=== PATIENT | female | born 1980 | race Caucasian/White ===

== ENCOUNTER 2022-01-16 18:36 | Emergency (ER) | payer SELFPAY ==
--- NOTE | ~2022-01-16 | CT_ITS ---
EXAMINATION: CT facial & cervical spine wo DATE: 01/16/2022 19:28 INDICATION: head trauma TECHNIQUE: Computed tomography (CT) of the maxillofacial region and cervical spine was performed with out intravenous contrast. Automated exposure control and iterative reconstruction technique were empl oyed. The dose-length product was 120.58 mGy-cm. COMPARISON: None FINDINGS: CERVICAL: Vertebral Body Alignment: Intact. Craniocervical and atlantoaxial alignment: Moderate degenerative change. Alignment intact. Osseous structures/fracture: No evidence of a lytic or blastic process in the visualized spine. No e vidence of acute fracture. Cervical soft tissues: The paraspinal soft tissues planes are maintained. Degenerative changes: No significant degenerative changes. FACE: Soft Tissues: No significant superficial soft tissue swelling. Facial bones: No acute fracture. No lytic or blastic process. Eyes: The globes are intact. The soft tissue planes of the orbits are maintained. Paranasal Sinuses: The visualized aerated spaces are clear. Foreign Bodies: No radiopaque foreign bodies. Other Findings: Periodontal disease. Apical pleural scarring and blebs. IMPRESSION: No acute fracture or traumatic malalignment in the cervical spine. No acute facial bone fracture. Reviewed, dictated and finalized at location K. IMPRESSION: No acute fracture or traumatic malalignment in the cervical spine. No acute fac ial bone fracture.
--- NOTE | ~2022-01-16 | CT_ITS ---
EXAMINATION: CT brain wo con DATE: 01/16/2022 19:28 INDICATION: head trauma . TECHNIQUE: Computed tomography (CT) of the head was performed without intravenous contrast. The mA wa s adjusted according to patient size. Iterative reconstruction technique was employed. The dose-lengt h product was 605.33 mGy-cm. COMPARISON: None FINDINGS: No acute intracranial hemorrhage or extra-axial fluid collection. No hydrocephalus, mass, or herniation. No acute ischemic infarct. Unremarkable dural venous sinus attenuation. No acute osseous abnormality. The aerated spaces are clear. IMPRESSION: No acute intracranial process. Reviewed, dictated and finalized at location K.
[2022-01-16 18:44] VITALS: BP 125/77; PULSE 126; RESP 16; TEMP 36.8; O2SAT 99
--- NOTE | 2022-01-16 18:55 | ED.PSYCH ---
HPI - Psych General Chief Complaint: Psychiatric Symptoms <Tereza Vergara MD - Last Filed: 01/17/22 06:15> Stated Complaint: delusional/paranoid <Tereza Vergara MD - Last Filed: 01/17/22 06:15> Time Seen by Provider: 01/16/22 18:49 <Tereza Vergara MD - Last Filed: 01/17/22 06:15> Source: patient and EMS <Tereza Vergara MD - Last Filed: 01/17/22 06:15> Mode of arrival: EMS <Tereza Vergara MD - Last Filed: 01/17/22 06:15> Limitations: clinical condition <Tereza Vergara MD - Last Filed: 01/17/22 06:15> History of Present Illness HPI Narrative: Patient is a 41-year-old female presenting to the emergency department via EMS for evaluation of hallucinations, paranoid behavior, head trauma. Patient reports she has been hallucinating, hearing voices in her head over the past 48 hours. Patient has been beating her head against a wall an effort to get the voices out of her head. Patient has significant facial bruising. She reports mild headache and neck pain. Patient denies focal weakness or numbness. She denies homicidal or suicidal ideation but does endorse significant depression. Patient denies suicide attempt. Patient reports methamphetamine use 2 days ago, denies alcohol or other drug abuse. She currently denies any chest pain, abdominal pain. <Tereza Vergara MD - Last Filed: 01/17/22 06:15> Related Data Allergies/Adverse Reactions: Allergies Allergy/AdvReac Type Severity Reaction Status Date / Time No Known Allergies Allergy Verified 01/17/22 00:01 <Tereza Vergara MD - Last Filed: 01/17/22 06:15> Review of Systems Review of Systems: CONSTITUTIONAL: Denies fever CARDIOVASCULAR: Denies chest pain RESPIRATORY: Denies cough or dyspnea. GASTROINTESTINAL: Denies abdominal pain SKIN: Denies rash, reports bruising MUSCULOSKELETAL: Denies back pain NEUROLOGIC: Reports headache <Tereza Veragra MD - Last Filed: 01/17/22 06:15> PMFSH Social History Social History: Social History Substance use type: amphetamines and methamphetamine <Tereza Vergara MD - Last Filed: 01/17/22 06:15> Exam Narrative: GENERAL: Awake, alert, conversant HEAD: Normocephalic, healing ecchymosis, inferior orbits bilaterally EYES: 2+ PERRLA and EOMI. ENT: Nares clear, no rhinorrhea or epistaxis. Mucous membranes moist. NECK: Supple. CHEST: No respiratory distress, breathing even and non labored HEART: Regular rate, sinus rhythm ABDOMEN:Non distended, non tender EXTREMITIES: Normal range of motion. No edema. SKIN: Warm, dry, no rash. NEURO:No focal deficits. Alert and oriented x3. Patient is ambulatory with a narrow base, steady gait, no ataxia. Psych: Patient is acutely delusional, paranoid, redirected during interview, denies homicidal or suicidal ideation <Tereza Vergara MD - Last Filed: 01/17/22 06:15> Course Course Emergency Course: 01/17 21:02 Patient was signed out to me by Dr. Potts. Patient is medically cleared at this time. <Caleb Curtis MD - Last Filed: 01/17/22 21:03> Reevaluation(s) Reevaluation #1: No acute events throughout the day. Exam unchanged and patient noted ambulating without assistance. Patient signed out to oncoming physician, Dr. Curtis, pending placement. <Ramu Potts MD - Last Filed: 01/17/22 19:02> Date: 01/17/22 <Ramu Potts MD - Last Filed: 01/17/22 19:02> Time: 19:00 <Ramu Potts MD - Last Filed: 01/17/22 19:02> Reevaluation #2: Currently patient is awake, alert and oriented x4, asymptomatic, patient is denying any suicidal or homicidal ideation she knows that she needs help and she is planning to follow-up with her psychiatrist and with the crisis line instruction. Patient still me that she came to the hospital on her own, requesting help, and she have the right to leave right now without holding her against her will. Patient psychosis high likely secondary to the
[2022-01-16 19:40] LABS: SARS-CoV-2 RNA PCR Negative
--- NOTE | 2022-01-16 20:19 | PC.NURSE ---
2 nurses and 2 techs have already tried for an IV and blood but we are unable to obtain blood at this time. Patient refuses to use the give a urine sample at this time.
[2022-01-16 20:35] LABS: Basophils Absolute Auto 0.1 K/mm3 (0.0-0.1); Basophils Percent Auto 0.5 % (0.2-1.2); Eosinophils Absolute Auto 0.1 K/mm3 (0-0.3); Eosinophils Percent Auto 0.6 % (0-4.4); Hematocrit 44.6 % (37.0-47.0); Hemoglobin 14.8 g/dL (12.0-15.0); Immature Granulocyte Absolute 0.05 K/mm3 (0.00-0.031); Immature Granulocyte Percent A 0.5 % (0-0.5); Immature Platelet Fraction Pct 4.5 % (0.9-11.2); Lymphocytes Percent Auto 25.3 % (18.3-44.2); Mean Corpuscular HGB Conc 33.2 g/dl (32-36); Mean Corpuscular Hemoglobin 31.4 pg (26-34); Mean Corpuscular Volume 94.5 fl (80-100); Mean Platelet Volume 10.1 fl (7.4-10.4); Monocytes Absolute Auto 0.9 K/mm3 (0.1-0.6); Monocytes Percent Auto 7.7 % (2.6-8.5); Neutrophils Absolute Auto 7.2 K/mm3 (1.3-6.7); Neutrophils Percent Auto 65.4 % (45.5-73.1); Platelet Count Result 332 k/mm3 (150-375); Red Blood Count 4.72 M/mm3 (4.2-5.4); Red Cell Distribution Width 14.2 % (11.5-14.5); White Blood Count 11.1 K/mm3 (4.5-10.0)
[2022-01-16 20:46] LABS: Platelet Estimate Adequate (Adequate)
[2022-01-16 20:52] LABS: Alanine Aminotransferase 47 U/L (6-35); Albumin Level 5.2 g/dL (3.5-5.1); Alkaline Phosphatase 81 U/L (38-126); Anion Gap 15 mmol/L (8-16); Aspartate Amino Transferase 30 U/L (14-36); Bilirubin,Total 0.7 mg/dL (0.2-1.3); Blood Urea Nitrogen 9 mg/dL (7-17); Calcium 9.6 mg/dL (8.4-10.2); Carbon Dioxide 21 mmol/L (22-30); Chloride 103 mmol/L (98-107); Estimated CRCL calculation 80 ml/min; Estimated Glomerular Filt Rate > 60; Glucose 97 mg/dL (65-110); Potassium 3.7 mmol/L (3.4-5.0); Sodium 139 mmol/L (137-145)
[2022-01-16 20:56] LABS: Ethanol < 10 mg/dL (<10)
[2022-01-16 21:22] LABS: Thyroid Stimulating Hormone 0.813 uIU/mL (0.465-4.680)
[2022-01-16 21:42] LABS: Appearance Urine Slightly Cloudy (Clear); Bilirubin Urine Negative (Negative); Blood Urine Negative (Negative); Color Urine Yellow (Yellow); Glucose Urine UA Negative (Negative); Ketones Urine Trace mg/dL (Negative); Leukocyte Esterase Ur Negative LEU/UL (Negative); Nitrate Urine Positive (Negative); Protein Urine 2+ mg/dL (Negative); Specific Grav Ur >= 1.030 (1.001-1.035); pH Urine 5.5 (5.0-9.0)
[2022-01-16 21:51] LABS: Amorphous Sediment Urine Few; Bacteria Urine Trace /hpf; Hyaline Casts Urine 20-29 /lpf; Mucus Urine Heavy /lpf; Squamous Epithelial Cell Urine Many /hpf (Few); WBC Urine 31-50 /hpf
[2022-01-16 21:53] LABS: Add Urine Microscopic? YES
[2022-01-16 21:58] LABS: Barbiturate Screen Urine Negative (Negative); Benzodiazepines Screen Urine Negative (Negative)
[2022-01-16 21:59] LABS: Cannabinoid Screen Urine Positive (Negative); Cocaine Screen Urine Negative (Negative); Methadone Screen Urine Negative (Negative); Opiate Screen Urine Negative (Negative); Phencyclidine Screen Urine Negative (Negative)
[2022-01-16 22:27] LABS: Amphetamine Screen Urine Positive (Negative)
--- NOTE | 2022-01-17 00:16 | PC.NURSE ---
Patient belongings locked up between rooms 4-5 Patient dog went home with the patient's brother. dog cage left outside the patient room. ED Charge nurse aware.
[2022-01-17] MEDS: CEPHALEXIN 500 MG CAPSULE PO ×4 (00:23→22:30)
[2022-01-17] MEDS: Please add drug allergy info to patient profile. 1 EACH XX (00:26)
[2022-01-17 03:27] VITALS: BP 138/86; PULSE 87; RESP 14; TEMP 36.6; O2SAT 100
[2022-01-17 06:52] VITALS: BP 93/66; PULSE 78; RESP 18; TEMP 36.1; O2SAT 100
--- NOTE | 2022-01-17 06:58 | PC.NURSE ---
[facility] called and asked questions about pt.She states she is awaiting paperwork from crisis. Also wanted to speak with pt on the phone.
--- NOTE | 2022-01-17 07:03 | PC.NURSE ---
[facility] called again and stated that pt did very well in her assessment. She states she is awaiting a Dr. and states that she is still awaiting paperwork from crisis. She states she is going to call crisis to followup.
--- NOTE | 2022-01-17 07:40 | PC.NURSE ---
pt resting comfortably w/ equal chest rise and fall. sitter at bedside. no request at this time.
--- NOTE | 2022-01-17 08:29 | PC.NURSE ---
spoke with Kadie at [facility] and states she received all the paperwork from [facility]. She states she will speak with the doctor and call back.
--- NOTE | 2022-01-17 08:32 | PC.NURSE ---
ordered pt breakfast tray.
--- NOTE | 2022-01-17 08:46 | PC.NURSE ---
Pt accepted at [facility], but will be waiting on discharges this morning before being given accepting md name and room number.
[2022-01-17 08:57] VITALS: BP 100/65; PULSE 76; RESP 14; TEMP 36.5; O2SAT 99
--- NOTE | 2022-01-17 12:44 | PC.NURSE ---
called [facility] for an update on bed placement. They state pt is still on the waiting list.
--- NOTE | 2022-01-17 14:03 | PC.NURSE ---
Kadie from [facility] called and states they do not have any discharges today. pt is still accepted and the first on the waitlist.
--- NOTE | 2022-01-17 14:18 | PC.NURSE ---
[facility] notified that patient was accepted to [facility] however will not have a bed today, may be tomorrow.
--- NOTE | 2022-01-17 14:43 | PC.NURSE ---
Marcelle from [facility] called. faxing chart to [facility] per her request.
[2022-01-17 15:36] VITALS: BP 110/66; PULSE 92; RESP 17; O2SAT 100
--- NOTE | 2022-01-17 17:13 | PC.NURSE ---
Marcelle from Crisis called and states [facility] denied pt.
--- NOTE | 2022-01-17 19:50 | PC.NURSE ---
Pt sleeping on bed in room. No distress noted. Sitter present at bedside.
--- NOTE | 2022-01-17 21:56 | PC.NURSE ---
Marcelle with [facility] called and provided fax number to [facility], and confirmed that patient has been accepted to [facility], but there are no beds available at this time, expecting beds tomorrow. Also, [facility] wants patient reassessed before they will consider looking at her case. They feel that the symptoms may be contributed to drugs (meth) from 2 days ago, and that with time, and drugs being out of her system, symptoms may be better/not there, so reassessment would be required. [facility] said that if they need to reassess, they will come in tomorrow (01/18) to do that.
[2022-01-18] MEDS: CEPHALEXIN 500 MG CAPSULE PO ×2 (06:55→14:08)
--- NOTE | 2022-01-18 12:07 | PC.NURSE ---
patient requesting to be discharged. patient informed by this RN that she is to speak with social scientist and a decision will be made after. patient remains calm and cooperative at this time.
--- NOTE | 2022-01-18 12:52 | PC.NURSE ---
patient informed she has been accepted to [facility] for inpatient treatment, but now is refusing to go and states she would like to be discharged. will inform MD and hospice social worker.
[2022-01-18 12:55] VITALS: BP 93/60; PULSE 103; RESP 20; TEMP 36.2; O2SAT 100
--- NOTE | 2022-01-18 13:19 | PC.NURSE ---
attempted to call report at 1315 to [facility]. no answer. will attempt to call back.
--- NOTE | 2022-01-18 14:08 | PC.NURSE ---
MD spoke with patient and was okay with re-evaluation. patient spoke with social studies department chair and is okay to be discharged
--- NOTE | 2022-01-18 14:15 | PC.NURSE ---
[facility] declined transfer to [facility]
== END 2022-01-18 14:28 ==
PROVIDERS: Emergency Medicine; Emergency Provider Emergency Medicine
DX: R44.0 Auditory hallucinations (principal); N39.0 Urinary tract infection, site not specified; S00.83XA Contusion of other part of head, initial encounter; F15.90 Other stimulant use, unspecified, uncomplicated; Z20.822 Contact with and (suspected) exposure to COVID-19; W22.09XA Striking against other stationary object, initial encounter
CPT/HCPCS: 36415; 70450; 70486; 72125; 80053; 80307; 81001; 81025; 84443; 85025; 85055; 87077; 87086; 87186; 99285; A9270; C9803; U0003; U0005

== ENCOUNTER 2023-08-27 15:38 | Inpatient (IN) | payer BC, SELFPAY ==
[2023-08-27] VITALS (47 sets, daily range): BP systolic 121–152; BP diastolic 65–129; PULSE 45–105; RESP 16; TEMP 37.1; O2SAT 97–100; BMI 20.5
[2023-08-27] MEDS: OXYTOCIN 30 UNITS/NS 500 ML 30 UNITS/500 ML BAG 125 UNITS IV CONT (16:31)
--- NOTE | 2023-08-27 16:31 | LDADM ---
This patient, Neelam Ly, was admitted to Labor/Delivery/Recovery 105 on 08/27/23 at 15:38. Pain management was discussed with patient. Patient/family oriented to hospital policies and general routines including ID bracelet, bed and alarms, visiting hours, pain management, procedures, bathroom and other care routines, personal items, smoking policy, room service/diet and guest tray routines, security routines, and visiting hours. Patient/Family are encouraged to report perceived risks to care and to ask questions if they do not understand what they are told or what they should do. See [facility] for further documentation.
[2023-08-27 16:36] LABS: Basophils Absolute Auto 0.1 K/mm3 (0.0-0.1); Basophils Percent Auto 0.3 % (0.2-1.2); Eosinophils Percent Auto 0.1 % (0-4.4); Hematocrit 33.8 % (37.0-47.0); Hemoglobin 11.2 g/dL (12.0-15.0); Immature Granulocyte Percent A 0.6 % (0-0.5); Lymphocytes Absolute Auto 1.78 K/mm3 (0.9-3.2); Lymphocytes Percent Auto 11.4 % (18.3-44.2); Mean Corpuscular HGB Conc 33.1 g/dl (32-36); Mean Corpuscular Hemoglobin 29.9 pg (26-34); Mean Corpuscular Volume 90.1 fl (80-100); Mean Platelet Volume 10.9 fl (7.4-10.4); Monocytes Percent Auto 6.1 % (2.6-8.5); Neutrophils Absolute Auto 12.8 K/mm3 (1.3-6.7); Neutrophils Percent Auto 81.5 % (45.5-73.1); Platelet Count Result 306 k/mm3 (150-375); Red Blood Count 3.75 M/mm3 (4.2-5.4); Red Cell Distribution Width 12.6 % (11.5-14.5); White Blood Count 15.7 K/mm3 (4.5-10.0)
[2023-08-27 16:46] LABS: Alanine Aminotransferase 16 U/L (6-35); Albumin Level 3.3 g/dL (3.5-5.1); Alkaline Phosphatase 256 U/L (38-126); Anion Gap -1 mmol/L (4-12); Aspartate Amino Transferase 34 U/L (14-36); Bilirubin,Total 0.6 mg/dL (0.2-1.3); Blood Urea Nitrogen 6 mg/dL (7-17); Calcium 8.9 mg/dL (8.4-10.2); Carbon Dioxide 26 mmol/L (22-30); Chloride 106 mmol/L (98-107); Estimated Glomerular Filt Rate > 60; Glucose 88 mg/dL (65-110); Potassium 3.8 mmol/L (3.4-5.0); Sodium 131 mmol/L (137-145)
--- NOTE | 2023-08-27 18:15 | PC.NURSE ---
Patient states she did not received any care during this . Patient states that she has history of homelessness. Patient states that she has used meth as recently as 2 days ago and was using drugs throughout this . Patient states she has a history of a suicide attempt years ago when she first was homeless and states that currently she has anxiety and is not on any medication. Social service consult was entered.
[2023-08-27 18:34] LABS: HIV 1/2 Ab P24 Ag Result Negative (Negative)
[2023-08-27 18:51] LABS: Amphetamine Screen Urine Positive (Negative); Barbiturate Screen Urine Negative (Negative); Benzodiazepines Screen Urine Negative (Negative); Cannabinoid Screen Urine Negative (Negative); Cocaine Screen Urine Negative (Negative); Methadone Screen Urine Negative (Negative); Opiate Screen Urine Negative (Negative); Phencyclidine Screen Urine Negative (Negative)
[2023-08-27 19:05] LABS: Hepatitis B Surface Antigen Negative (Negative)
[2023-08-27] MEDS: IBUPROFEN 600 MG TABLET PO (19:06)
--- NOTE | 2023-08-27 19:14 | OBPPTRN ---
Patient transferred to post room #283 via wheelchair. Support person present. Oriented to unit, room, information board, rooming in, admission packet and security measures. Patient verbalizes understanding.
[2023-08-27 19:36] LABS: Rubella IgG Antibody 39.1 IU/ML
--- NOTE | 2023-08-27 21:28 | PM.IMHP ---
H&P: HPI History of Present Illness Date/Time: 08/27/23 21:28 Chief Complaint: s/p at home Narrative: Patient is a 43 year old who presents ~2 hours s/p at home. She reports contractions starting last night and possible SROM yesterday but unknown time. She reports losing consciousness after delivery. Placenta still in place on arrival. Denies fevers or chills. Has not had care in this , however she believes her EDC to be sometime in mid-August. Unsure LMP. Denies PMH; hx of leg surgery. Does report tobacco and methamphetamine use during , unsure of last use. She also reports she is experiencing homelessness. Recently moved to the area. Review of Systems Review of Systems: All systems reviewed & are unremarkable except as noted in HPI and below PMFSH Family History Family History Mother Heart disease Diabetes mellitus Acute myocardial infarction Hypertension Grandparent Heart disease Hypertension Pancreatic cancer Social History Social History Smoking packs per day: 0.5 Smoking cigarettes per day: 10.0 Years smoked: 20 Smoking pack-years: 10.00 Smoking status: Current every day smoker Tobacco type: cigarettes Second hand tobacco smoke exposure: Yes Substance use: former Substance use type: amphetamines and methamphetamine Last use: 2014 Do You Feel Safe in your Home?: Yes Lack of Transportation: YES Lack of Food: Sometimes True Current Housing: I Do Not Have Housing Concerned About Future Housing: YES Difficulty Paying Gas/Electric Bills: No Difficulty Paying for Meds: YES Currently Unemployed: YES Education: High School Diploma/GED Difficulty w/ Childcare or Family Care: No Spiritual care concerns: No Meds Home Medications and Allergies Home Medications Medication Instructions Recorded Confirmed Type nitrofurantoin 100 mg PO Q12H 5 days #10 caps 01/18/22 Rx monohydrate/macrocrystals 100 mg capsule (Macrobid) Allergies Allergy/AdvReac Type Severity Reaction Status Date / Time No Known Allergies Allergy Verified 01/17/22 00:01 Vital Signs Vital Signs - 24 hr 08/27/23 15:44 08/27/23 15:46 08/27/23 15:49 Temperature Pulse Rate 103 H Respiratory Rate Blood Pressure 124/83 Pulse Oximetry 100 100 Oxygen Delivery 08/27/23 15:54 08/27/23 15:59 08/27/23 16:04 Temperature Pulse Rate Respiratory Rate Blood Pressure Pulse Oximetry 100 100 100 Oxygen Delivery 08/27/23 16:06 08/27/23 16:09 08/27/23 16:14 Temperature Pulse Rate 65 Respiratory Rate Blood Pressure 152/102 H Pulse Oximetry 100 98 Oxygen Delivery 08/27/23 16:16 08/27/23 16:17 08/27/23 16:19 Temperature Pulse Rate 45 L 62 Respiratory Rate Blood Pressure 147/129 H 144/73 H Pulse Oximetry 100 Oxygen Delivery 08/27/23 16:24 08/27/23 16:29 08/27/23 16:31 Temperature Pulse Rate 77 Respiratory Rate Blood Pressure 141/86 H Pulse Oximetry 100 100 Oxygen Delivery 08/27/23 16:34 08/27/23 16:39 08/27/23 16:44 Temperature Pulse Rate Respiratory Rate Blood Pressure Pulse Oximetry 100 100 100 Oxygen Delivery 08/27/23 16:46 08/27/23 16:49 08/27/23 16:54 Temperature Pulse Rate 88 Respiratory Rate Blood Pressure 134/90 Pulse Oximetry 100 99 Oxygen Delivery 08/27/23 16:59 08/27/23 17:01 08/27/23 17:04 Temperature Pulse Rate 64 Respiratory Rate Blood Pressure 141/78 H Pulse Oximetry 100 100 Oxygen Delivery 08/27/23 17:09 08/27/23 17:14 08/27/23 17:16 Temperature Pulse Rate 79 Respiratory Rate Blood Pressure 128/71 Pulse Oximetry 100 100 Oxygen Delivery 08/27/23 17:19 08/27/23 17:24 08/27/23 17:29 Temperature Pulse Rate Respiratory Rate Blood Pre
--- NOTE | 2023-08-27 21:38 | PM.OBPRVD ---
OB - Vaginal Delivery Note Procedure Delivery date: 08/27/23 Events: No Care Intrapartal Events: Other (precipitous delivery outside of hospital) Induction method: None Route of delivery: Laceration Description: None Specimen: Yes (placenta for path and culture) Quantitative Blood Loss (ml): 50 Anesthesia type: None Disposition: Floor Complications: No immediate complications Narrative: Patient delivered precipitously outside of hospital. Placenta undelivered on arrival. Placenta delivered easily with umbilical cord traction. No lacerations noted, bleeding minimal. [place] Baby Weeks of gestation at delivery: 36 gender: Female Placenta delivery description: Expressed Narrative: Unknown gestational age, ~36 weeks based on unsure LMP
[2023-08-28 04:20] VITALS: BP 108/66; PULSE 97; RESP 16; TEMP 36.7; O2SAT 98
[2023-08-28 07:13] LABS: Hematocrit 31.1 % (37.0-47.0); Hemoglobin 10.3 g/dL (12.0-15.0)
[2023-08-28 07:46] VITALS: BP 129/87; PULSE 95; RESP 14; TEMP 36.5; O2SAT 98
[2023-08-28] MEDS: IBUPROFEN 600 MG TABLET PO (07:48)
[2023-08-28] MEDS: MULTIVIT/MIN/PREN/FOL AC/IRON TABLET 1 TAB PO (07:48)
--- NOTE | 2023-08-28 08:25 | P.PNOB_ITS ---
OB - PN: Subj Subjective Date/time seen: 08/28/23 08:25 Interval history: PPD#1 s/p Doing well, pain controlled Bleeding minimal Tolerating general diet Voiding without issue OB - PN: Obj Data Labs 08/28/23 07:08 08/27/23 16:26 Labs: Laboratory Results - last 24 hr 08/27/23 08/27/23 08/28/23 16:25 16:26 07:08 WBC 15.7 H RBC 3.75 L Hgb 11.2 L D 10.3 L Hct 33.8 L 31.1 L MCV 90.1 MCH 29.9 MCHC 33.1 RDW 12.6 Plt Count 306 MPV 10.9 H Immature Gran % (Auto) 0.6 H Neut % (Auto) 81.5 H Lymph % (Auto) 11.4 L [place] % (Auto) 6.1 Eos % (Auto) 0.1 Baso % (Auto) 0.3 Lymph # (Auto) 1.78 [place] # (Auto) 1.0 H Eos # (Auto) 0.0 Baso # (Auto) 0.1 Abs Immat Gran (auto) 0.10 H Absolute Neuts (auto) 12.8 H Absolute Nucleated RBC 0.000 Nucleated RBC % 0.0 Sodium 131 L Potassium 3.8 Chloride 106 Carbon Dioxide 26 Anion Gap -1 L BUN 6 L Creatinine 0.30 L Estim Creat Clear Calc Not Reportable Estimated GFR > 60 Glucose 88 Calcium 8.9 Total Bilirubin 0.6 AST 34 ALT 16 Alkaline Phosphatase 256 H Total Protein 7.0 Albumin 3.3 L Urine Opiates Screen Negative Urine Methadone Screen Negative Ur Barbiturates Screen Negative Ur Phencyclidine Scrn Negative Ur Amphetamine Screen Positive A U Benzodiazepines Scrn Negative Urine Cocaine Screen Negative U Cannabinoids Screen Negative Hep Bs Antigen Negative HIV 1&2 Ab/P24 Ag 4thGn Negative Rubella IgG Antibody 39.1 Blood Type O Positive Antibody Screen Negative OB - PN A/P Assessment and Plan (1) Precipitous delivery: Code(s): O62.3 - Precipitate labor Status: Acute Plan day: 1 Plan: routine care Time Spent With Patient Time: Total time spent is greater than 50% in coordination of care (as documented) at patient's floor/unit and/or counseling patient: Review of Systems Review of Systems: All systems reviewed & are unremarkable except as noted in HPI and below Exam Const: General: comfortable, no acute distress, alert and awake Resp: Effort & Inspection: normal respiratory effort GI: GI Palp: Yes Soft to palpation, No Tenderness to palpation present (GI) and No Guarding due to palpation present (GI)
--- NOTE | 2023-08-28 09:35 | PC.NURSE ---
On 08/28/23, the student, Earline Buchanan, provided care and completed [facility] documentation on this patient. I have reviewed the student's documentation and agree with the findings.
[2023-08-28 09:42] LABS: Rapid Plasma Reagin Non-Reactive (NonReactive)
[2023-08-28] MEDS: TETANUS,DIPHTHERIA,AC PERTUSSIS ADULT (0.5 ML) BOOSTRIX IM (11:39)
[2023-08-28 12:09] VITALS: BP 144/98; PULSE 100; RESP 16; TEMP 36.6; O2SAT 99
--- NOTE | 2023-08-28 13:45 | PCCCNOTE ---
Care Coordination. Patient referred to CC for several SDOH resources (all were provided and explained), positive drug screen of amphetamines for mom and baby, and housing concerns. Mother denies substance use being an issue. Pt. delivered in a tent they have been living in in [place]. She reports passing out after for awhile. FOB ended up calling EMS from a friend's phone. She and FOB report they have been homeless for awhile. Pt. moved her 2 years ago from [place] and was homeless about 3 months later. She has an adult daughter at 19 years old. Pt. did not have any care. They report FOB has a grandmother and sister in the area that may be able to help with baby if needed. They state having some baby supplies for infant, but they are concerned how they will provide or care for baby in a tent. Per RN, baby will need to consistently gain weight and likely Saturday would be earliest for dc. [facility] emery wheel worker Ricardo Gavin who reports will take pt.'s situation as report ID# [id number]. Per RN, [facility] complaint investigator, Alfreda Jack, came to see pt. and will be taking infant into care at ut. Pt. and FOB are checking to see if they will have any reliable family members that baby can stay with. DCFS will need contacted at [facility]. Will follow.
[2023-08-28 19:54] VITALS: BP 108/69; PULSE 93; RESP 16; TEMP 36.7; O2SAT 97
--- NOTE | 2023-08-29 04:53 | PM.OBPNVD ---
OB - PN: Subj Subjective Date/time seen: 08/29/23 04:53 Interval history: PPD#2 s/p Sleeping when visited No issues overnight Issues with baby feeding and sugars, ok for patient to be discharged to no care bed today OB - PN: Obj Data Labs 08/28/23 07:08 08/27/23 16:26 Labs: Laboratory Results - last 24 hr 08/27/23 08/28/23 16:26 07:08 Hgb 10.3 L Hct 31.1 L RPR Non-reactive OB - PN A/P Plan day: 2 Plan: discharge home and follow up 6 weeks Time Spent With Patient Time: Total time spent is greater than 50% in coordination of care (as documented) at patient's floor/unit and/or counseling patient: Review of Systems Review of Systems: All systems reviewed & are unremarkable except as noted in HPI and below
--- NOTE | 2023-08-29 04:58 | PM.OBDSVD ---
DS: Admitting Diagnosis Discharge Date 08/29/23 Admitting Diagnosis s/p precipitous labor outside of hospital DS: Discharge Diagnosis Discharge Diagnosis (1) Precipitous delivery: Code(s): O62.3 - Precipitate labor Status: Acute (2) (spontaneous vaginal delivery): Code(s): O80 - Encounter for full-term uncomplicated delivery Status: Acute (3) History of drug use: Code(s): F19.91 - Other psychoactive substance use, unspecified, in remission Status: Acute (4) Homeless: Code(s): Z59.00 - Homelessness unspecified Status: Acute OB - DS: Summary OB Procedures : None OB Procedures Intrapartum: Spontaneous Vag Delivery (precipitous outside of hospital; placenta delivered after arrival) OB Procedures: : None Peripartum Data Laceration Description: None Time Spent with Patient Time attestation: Total time spent providing and/or coordinating discharge services: DS: Data Data Completed and Pending Pending studies at discharge: Pending at discharge 08/27/23 17:02 Surgical [PTH] Routine Labs on day of discharge: Labs from last 24 hours 08/28/23 08/27/23 07:08 16:26 Hgb 10.3 L Hct 31.1 L RPR Non-reactive Discharge Plan Discharge Attending physician on discharge: Ry Carmona Discharging Clinician: Ry Carmona Patient Disposition: Home, Self-Care Activity: may shower, as tolerated and pelvic rest Diet: as tolerated Patient Instructions: Antibiotic Form Stand Alone Forms: General Discharge Information Follow-up/Referrals: Ry Carmona MD [Physician] - 5 Weeks Discharge Medications: New ibuprofen 600 mg Tablet 600 mg PO Q6H PRN (Reason: Cramping) Qty: 30 0RF docusate sodium 100 mg Capsule 100 mg PO BID PRN (Reason: Constipation) Qty: 60 0RF Discontinued nitrofurantoin monohyd/m-cryst [Macrobid] 100 mg capsule 100 mg PO Q12H 5 Days Qty: 10 0RF Rx Instructions: must administer with a meal/food Date of admission: 08/27/23 15:38 Primary Care Provider: UNKNOWN,DOCTOR Admitting Provider: Ry Carmona Attending physician on admission: Ry Carmona Condition: Stable
[2023-08-29 07:45] VITALS: BP 121/78; PULSE 94; RESP 16; TEMP 36.6; O2SAT 99
[2023-08-29] MEDS: IBUPROFEN 600 MG TABLET PO (08:44)
[2023-08-29] MEDS: MULTIVIT/MIN/PREN/FOL AC/IRON TABLET 1 TAB PO (08:45)
--- NOTE | 2023-08-29 17:27 | PC.NURSE ---
Called Dr. Carmona in regard to pt's outpatient pharmacy. Pt has chosen [facility] in [place] [address]. MD will re-send discharge medications so pt can pick them up.
--- NOTE | 2023-08-30 18:51 | PC.NURSE ---
Patient Neelam Ly has been absent from the hospital since being discharged to a no care bed on the evening of 08/29/23. Sunni was transferred to [facility] in the night. None of the phone numbers on file for mom or dad worked to get in contact with them so they could be updated on infant. The parents did not call or come in to check on infant until 1750 on 08/30/23 when they called the unit. Upon speaking to the mother and father and informing them of infant's transfer, they were very upset that the baby was no longer admitted at this facility. They were given the phone number to the [facility] NICU and told to call them for updates on infant. The phone number they called from was [phone]. They stated that they do not have access to a phone on a regular basis. Encouraged parents to call NICU for further questions/concerns as infant is no longer a patient here.
== END 2023-08-29 17:20 | disposition home or self-care (01) | DRG 561 ==
LOC: ANHLDR 18:06 → ANHOB2 19:19
PROVIDERS: Admitting Provider Obstetrics & Gynecology; Visit Provider Obstetrics & Gynecology
DX: Z39.0 Encounter for care and examination of mother immediately after delivery (principal); Z59.00 Homelessness unspecified
CPT/HCPCS: 36415; 80053; 80307; 85014; 85018; 85025; 86592; 86703; 86762; 86850; 86900; 86901; 87340; 88307; 90715; A9270; G0432; J2590

== ENCOUNTER 2024-07-02 13:45 | Emergency (ER) | payer BC, SELFPAY ==
[2024-07-02 13:50] VITALS: BP 144/99; PULSE 107; RESP 15; TEMP 36.6; O2SAT 100
[2024-07-02 17:00] VITALS: BP 143/94; PULSE 108; RESP 18; TEMP 36.4; O2SAT 100
--- NOTE | 2024-07-02 18:26 | PC.NURSE ---
Patients family member at nurses station asking for update and time estimate for provider eval. Discussed ED expectations. Family states they may leave. Will notify staff.
[2024-07-02 19:01] VITALS: BP 131/85; PULSE 106; RESP 18; TEMP 36.9; O2SAT 100
--- NOTE | 2024-07-02 19:30 | ED.SKABFB ---
HPI - Skin/Abscess/Foreign Bdy General Chief complaint: Skin/Abscess/Foreign Body Stated complaint: psoriasis exacerbation Time Seen by Provider: 07/02/24 17:07 Source: patient Mode of arrival: ambulatory Limitations: no limitations History of Present Illness HPI narrative: This is a 44-year-old female who presents to the ED for chief complaint of outbreak of psoriasis. Patient states that she has had psoriasis for many years but over the past couple of months she has had an increase in the rash throughout the extremities, trunk and torso. States that the rash is burning and irritating. She has tried [id number] hydrocortisone cream minimally because it was burning when she tried to apply it. States she has not seen a [employer] of [employer] division manager and has been trying to treat with UV exposure. Denies fevers, chills, nausea, vomiting. Related Data Allergies Allergy/AdvReac Type Severity Reaction Status Date / Time No Known Allergies Allergy Verified 07/02/24 16:45 Review of Systems Review of Systems: All systems as dictated in HPI [facility] Family History Family History Mother Heart disease Diabetes mellitus Acute myocardial infarction Hypertension Grandparent Heart disease Hypertension Pancreatic cancer Social History Social History Smoking packs per day: 0.5 Smoking cigarettes per day: 10.0 Years smoked: 20 Smoking pack-years: 10.00 Smoking status: Current every day smoker Tobacco type: cigarettes Second hand tobacco smoke exposure: Yes Substance use: former Substance use type: amphetamines and methamphetamine Last use: 2014 Do You Feel Safe in your Home?: Yes Lack of Transportation: YES Lack of Food: Sometimes True Current Housing: I Do Not Have Housing Concerned About Future Housing: YES Difficulty Paying Gas/Electric Bills: No Difficulty Paying for Meds: YES Currently Unemployed: YES Education: High School Diploma/GED Difficulty w/ Childcare or Family Care: No Spiritual care concerns: No Exam Narrative: GENERAL: Well-appearing, well-nourished, and in no acute distress. HEAD: Normocephalic, atraumatic. EYES: PERRLA and EOMI. ENT: Nares clear, no rhinorrhea or epistaxis. Mucous membranes moist. Oropharynx without tonsillar hypertrophy exudate or other lesions. NECK: Supple. No adenopathy or masses. CHEST: No respiratory distress. Clear to auscultation. No wheezes rales or rhonchi HEART: Regular rate and rhythm. No murmur heard. Normal peripheral pulses. ABDOMEN: Soft, nontender, nondistended, normal active bowel sounds. MSK: Normal range of motion. No edema. SKIN: Warm, dry, no rash. NEURO: Alert and oriented x4. No focal deficits. PSYCH: Normal mood and affect. Course Vital Signs Vital signs: Vital Signs Temperature 97.8 F 07/02/24 13:50 Pulse Rate 107 H 07/02/24 13:50 Respiratory Rate 15 07/02/24 13:50 Blood Pressure 144/99 H 07/02/24 13:50 Pulse Oximetry 100 07/02/24 13:50 Oxygen Delivery Room Air 07/02/24 13:50 Temperature 98.5 F 07/02/24 19:01 Pulse Rate 106 H 07/02/24 19:01 Respiratory Rate 18 07/02/24 19:01 Blood Pressure 131/85 07/02/24 19:01 Pulse Oximetry 100 07/02/24 19:01 Oxygen Delivery Room Air 07/02/24 13:50 MDM - Skin/Abscess/Foreign Bdy MDM Narrative Medical decision making narrative: This is a 44-year-old female who presents to the ED for flare of psoriasis. She is not currently have a [employer] of [employer] division manager. Vitals today are normal. Exam remarkable for the above with extensive psoriasis throughout the extremities and torso. She has not been consistently using topical hydrocortisone cream. She was given dose of prednisone here and was given for short course for prednisone for home. Discussed the risks of rebound psoriasis with longer courses of prednisone. She was given triamcinolone prescription for tap treatment. She understands that she needs to contact her insurance and get in touch with the chamber of [employer] division manager for follow-up. Pt will be discharged in stable condition. Return precautions given and supportive measures discussed. Pt is understanding and agreeable with plan for discharge and follow-up with PCP. Discharge Plan Discharge Clinical Impression: Psoriasis Patient Disposition: Home, Self-Care Condition: Stable Instructions: Antibiotic Form, Psoriasis (ED) Additional Instructions: Your exam today is remarkable for psoriasis. Please use triamcinolone cream topically and take prednisone as prescribed. Contact her insurance and get in touch with local dermatology for definitive management of this issue. If you have any new or worsening symptoms please return to the ER for further evaluation. Patient Language: Honduran Prescriptions: New triamcinolone acetonide 0.1 % cream 1 applic topical BID Qty: 80 0RF prednisone 20 mg tablet 20 mg PO DAILY 3 Days Qty: 3 0RF No Action docusate sodium 100 mg Capsule 100 mg PO BID PRN (Reason: Constipation) Qty: 60 0RF ibuprofen 600 mg Tablet 600 mg PO Q6H PRN (Reason: Cramping) Qty: 30 0RF Follow-up/Referrals: UNKNOWN,DOCTOR [Primary Care Provider] - Time of Disposition: 19:32
[2024-07-02] MEDS: predniSONE 20 MG TABLET 40 MG PO (19:50)
== END 2024-07-02 19:50 | disposition home or self-care (01) ==
PROVIDERS: Emergency Provider Physician Assistant
DX: L40.9 Psoriasis, unspecified (principal); F17.210 Nicotine dependence, cigarettes, uncomplicated
CPT/HCPCS: 99283; J7512

== ENCOUNTER 2025-02-08 03:54 | Inpatient (IN) | payer BC, SELFPAY ==
[2025-02-08] VITALS (47 sets, daily range): BP systolic 99–166; BP diastolic 72–98; PULSE 61–98; RESP 16–20; TEMP 36.4–37.1; O2SAT 97–100; BMI 19.6
[2025-02-08] MEDS: OXYTOCIN 30 UNITS/NS 500 ML 30 UNITS/500 ML BAG 999 UNITS IV CONT (04:15)
--- NOTE | 2025-02-08 04:15 | S_PTH ---
PATIENT: Neelam Ly LOC: [facility] U#:[id number] AGE/SX: 44/F ROOM: 290 RE02/08/[address]: Aureliano Chapman MD : 1980 BED: 00 DIS: 02/09/2025 SPEC #: [id number] RECD: 02/08/25 09:53 STATUS: IRINA REQ #: [id number] CARL: 02/08/25 04:[address]: Aureliano Peguero DEPT: [facility] Surgical RECD BY: Molly Sánchez ENTERED: 02/08/25 09:53 SP TYPE: Surgical OTHR DR: UNKNOWN,DOCTOR Tissues: A - Placenta Procedures: Hematoxylin and Eosin Stain Gross and Microscopic Level 5
--- NOTE | 2025-02-08 04:21 | P.HP_ITS ---
H&P: HPI History of Present Illness Date/Time: 02/08/25 04:21 Chief Complaint: Delivered in car Narrative: is a 44-year-old 3 para 2 who delivered in the car apparently had no healthcare she admits to methamphetamine use. Baby appears to be okay at this point and I delivered the placenta Review of Systems Review of Systems: All systems as dictated in HPI [facility] Family History Family History Mother Heart disease Diabetes mellitus Acute myocardial infarction Hypertension Grandparent Heart disease Hypertension Pancreatic cancer Social History Social History Smoking packs per day: 0.5 Smoking cigarettes per day: 10.0 Years smoked: 20 Smoking pack-years: 10.00 Smoking status: Current every day smoker Tobacco type: cigarettes Second hand tobacco smoke exposure: Yes Substance use: former Substance use type: amphetamines and methamphetamine Last use: 2014 Do You Feel Safe in your Home?: Yes Lack of Transportation: YES Lack of Food: Sometimes True Current Housing: I Do Not Have Housing Concerned About Future Housing: YES Difficulty Paying Gas/Electric Bills: No Difficulty Paying for Meds: YES Currently Unemployed: YES Education: High School Diploma/GED Difficulty w/ Childcare or Family Care: No Spiritual care concerns: No Meds Home Medications and Allergies Home Medications ?Medication ?Instructions ?Recorded ?Confirmed ?Type docusate sodium 100 mg capsule 100 mg PO BID PRN Const ipation #60 08/29/23 Rx caps ibuprofen 600 mg tablet 600 mg PO Q6H PRN Cramping # 30 tabs 08/29/23 Rx prednisone 20 mg tablet 20 mg PO DAILY 3 days #3 tab s 07/02/24 Rx triamcinolone acetonide 0.1 % 1 applic topical BID #80 grams 07/02/24 Rx topical cream Allergies Allergy/AdvReac Type Severity Reaction Status Date / Time No Known Allergies Allergy Verified 07/02/24 16:45 Vital Signs Vital Signs - 24 hr 02/08/25 04:16 02/08/25 04:20 Pulse Rate 70 Blood Pressure 138/90 Pulse Oximetry 99 Exam Const: General: no acute distress and confusion Nutritional Appearance: average body habitus Limitations: altered mental status GI: Inspection: normal to inspection (Fundus firm below the umbilicus) : External Female Exam: normal external appearance Speculum Exam - Vagina: normal appearance of the vagina Speculum Exam - Cervix: normal appearance of the cervix (Placenta delivered with good uterine tone) Assessment and Plan Assessment and plan (1) Precipitous delivery: Code(s): O62.3 - Precipitate labor Status: Acute Plan Will get social service consult
--- NOTE | 2025-02-08 04:25 | PM.OBPRVD ---
OB - Vaginal Delivery Note Procedure Delivery date: 02/08/25 Events: Other (No care) Induction method: None Delivery monitor: None Route of delivery: Episiotomy description: None Laceration Description: None Specimen: Yes Quantitative Blood Loss (ml): 62 Anesthesia type: None Disposition: Floor Complications: No immediate complications Narrative: This is a patient who apparently delivered in the car was followed by the police. Boyfriend admits to amphetamine use during the and hosiery pairer will be made aware. When I arrived the baby had been delivered and the placenta delivered intact spontaneously. Twenty of Pitocin placed IV to help firm the uterus. No tears or lacerations were noted. Blood loss was 62cc for this portion Baby Date of : 02/08/25 Gestational Age by Date: 40 Infant gender: Male Placenta delivery description: Spontaneous Cord Vessel Description: 3 Vessels
--- NOTE | 2025-02-08 04:26 | PM.DS ---
DS: Admitting Diagnosis Discharge Date 02/09/2025 Admitting Diagnosis Term without care DS: Discharge Diagnosis Discharge Diagnosis (1) Precipitous delivery: Code(s): O62.3 - Precipitate labor Status: Acute (2) History of drug use: Code(s): F19.91 - Other psychoactive substance use, unspecified, in remission Status: Acute DS: Summary Hospital Course Reason for hospitalization: Patient apparently delivered in the car prior to admission and I delivered the placenta here Hospital Course: Patient's hospital course unremarkable. She remained afebrile. She was up, voiding without difficulty regular diet, ambulating, generally without complaints. Time Spent with Patient Time attestation: Total time spent providing and/or coordinating discharge services: Exam Const: General: no acute distress and confusion Nutritional Appearance: average body habitus Limitations: altered mental status GI: Inspection: normal to inspection (Fundus firm below the umbilicus) : External Female Exam: normal external appearance Speculum Exam - Vagina: normal appearance of the vagina Speculum Exam - Cervix: normal appearance of the cervix (Placenta delivered with good uterine tone) Discharge Plan Discharge Attending physician on discharge: Aureliano Peguero Discharging Clinician: Aureliano Peguero Patient Disposition: Home Activity: may shower, no straining and pelvic rest Diet: heart healthy Wound Care Instructions: follow printed instructions Patient Instructions: Antibiotic Form Patient Language: Qatari Stand Alone Forms: General Discharge Information Follow-up/Referrals: Aureliano Peguero MD [Physician, GEAR GENERATOR SET UP OPERATOR] Discharge Medications: Continued triamcinolone acetonide 0.1 % cream 1 applic topical BID Qty: 80 0RF prednisone 20 mg tablet 20 mg PO DAILY 3 Days Qty: 3 0RF docusate sodium 100 mg Capsule 100 mg PO BID PRN (Reason: Constipation) Qty: 60 0RF ibuprofen 600 mg Tablet 600 mg PO Q6H PRN (Reason: Cramping) Qty: 30 0RF Date of admission: 02/08/25 03:54 Primary Care Provider: UNKNOWN,DOCTOR Admitting Provider: Aureliano Peguero Attending physician on admission: Aureliano Peguero Condition: Stable
[2025-02-08 04:32] LABS: Hematocrit 32.1 % (37.0-47.0); Hemoglobin 10.2 g/dL (12.0-15.0); Immature Granulocyte Percent A 0.8 % (0-0.5); Lymphocytes Absolute Auto 2.53 K/mm3 (0.9-3.2); Mean Corpuscular HGB Conc 31.8 g/dl (32-36); Mean Corpuscular Hemoglobin 26.8 pg (26-34); Mean Corpuscular Volume 84.5 fl (80-100); Nucleated Red Blood Cells Absolute Auto 0.020 K/mm3 (0.0-0.012); Nucleated Red Blood Cells Perc 0.1 % (0.0-0.2); Platelet Count Result 335 k/mm3 (150-375); Red Blood Count 3.80 M/mm3 (4.2-5.4); White Blood Count 14.8 K/mm3 (4.5-10.0)
[2025-02-08] MEDS: OXYTOCIN 30 UNITS/NS 500 ML 30 UNITS/500 ML BAG 125 UNITS IV CONT (05:02)
[2025-02-08 05:20] LABS: Syphilis IgG/IgM Antibody Non-Reactive (Nonreactive)
[2025-02-08 05:31] LABS: Hepatitis B Surface Antigen Negative (Negative)
[2025-02-08 05:45] LABS: HIV 1/2 Ab P24 Ag Result Negative (Negative)
--- NOTE | 2025-02-08 10:50 | LDADM ---
This patient, Neelam Ly, was admitted to Labor/Delivery/Recovery 106 on 02/08/25 at 03:54. Plans for labor, pain management and were discussed with patient. Patient/family oriented to hospital policies and general routines including ID bracelet, bed and alarms, visiting hours, pain management, procedures, bathroom and other care routines, personal items, smoking policy, room service/diet and guest tray routines, infant security routines, and visiting hours. Patient/Family are encouraged to report perceived risks to care and to ask questions if they do not understand what they are told or what they should do. See OBIX for further documentation.
[2025-02-08] MEDS: WITCH HAZEL 40 PADS 1 PAD TOPICAL (12:51)
[2025-02-08] MEDS: BENZOCAINE 20% AER SPR (*SP) 56 GM CAN 1 SPRAY TOPICAL (12:51)
[2025-02-08] MEDS: IBUPROFEN 600 MG TABLET PO ×2 (12:57→20:34)
[2025-02-08 13:30] LABS: Cannabinoid Screen Urine Positive (Negative)
[2025-02-08] MEDS: LACTATED RINGERS 1,000 ML 999 ML IV CONT (15:11)
--- NOTE | 2025-02-08 15:19 | PCCCNOTE ---
Addendum entered by Kinza Falk, MOTHERS HELPER 02/12/25 15:12: Umbilical cord drug screen results available; faxed results to [facility], [facility] [phone] and [facility] [phone]. Original Note: Recvd referral due to + tox screen. Pt. tested + for Amphetamine and THC on UDS. Baby's umbilical cord drug screen is pending. Pt's FOB is Emely Alvarez. Met with pt., pt's father Rivas Ly, step mother Rosa Brewer, and pt's 16 month old daughter (Sunni) foster mother Arturo Stroud. Arturo requests custody of baby boy; [facility] aware. During pt's last delivery in August 2023, pt's baby(Sunni) was taken into [facility] custody due to unstable housing and +Amphetamine UDS. Pt. is current with [employer] worker Shellie Russell (Office: [phone] ext [phone], Office: [phone], ). Baby boy transferred to [facility]. Have spoken with [facility] Ry khalil, cell: [phone], and Lauren Sethi, ph: [phone], fax: [phone]. Ry and Lauren request baby's umbilical cord drug screen results; both aware we likely will not get results for a few days. Ry to follow up with Lauren in regards to baby boy's plan. Substance abuse resources provided to pt; pt. reports not agreeable to [facility] seeing her while hospitalized. Pt. requests to have tubal ligation to prevent any future pregnancies; RN aware. [facility] report # [id number]. TERRI Jaramillo aware of visit.
--- NOTE | 2025-02-08 17:20 | PC.NURSE ---
[facility] on the phone asking to speak to patient about the condition of baby. I went in the room and the patient was sleeping soundly in bed. She did wake up to verbal stimulus and I handed her the phone so she could speak to [facility].
[2025-02-08] MEDS: diphenhydrAMINE HCl CAP 25 MG CAPSULE 50 MG PO (20:25)
[2025-02-08] MEDS: HYDROCORTISONE 1% 30 GM CREAM 1 APPLIC TOPICAL (20:25)
[2025-02-09 00:15] VITALS: BP 132/83; PULSE 84; RESP 18; TEMP 36.4; O2SAT 99
[2025-02-09] MEDS: IBUPROFEN 600 MG TABLET PO (04:16)
[2025-02-09] MEDS: diphenhydrAMINE HCl CAP 25 MG CAPSULE 50 MG PO (04:16)
[2025-02-09 04:33] LABS: Hematocrit 26.0 % (37.0-47.0); Hemoglobin 8.2 g/dL (12.0-15.0)
--- NOTE | 2025-02-09 06:54 | P.PNOB_ITS ---
OB - PN: Subj Subjective Date/time seen: 02/09/25 06:54 Interval history: desires dc Patient comments: no complaints and tolerating diet [place] baby status: other (transferred) OB - PN: Obj Data Labs 02/09/25 04:10 Labs: Laboratory Results - last 24 hr 02/08/25 02/08/25 02/09/25 04:25 11:00 04:10 Hgb 8.2 L Hct 26.0 L Urine Opiates Screen Negative Urine Methadone Screen Negative Ur Barbiturates Screen Negative Ur Phencyclidine Scrn Negative Ur Amphetamine Screen Positive A U Benzodiazepines Scrn Negative Urine Cocaine Screen Negative U Cannabinoids Screen Positive A Hepatitis C Ab Screen Negative Rubella IgG Antibody 46.5 OB - PN A/P Assessment and Plan (1) Precipitous delivery: Code(s): O62.3 - Precipitate labor Status: Acute (2) (spontaneous vaginal delivery): Code(s): O80 - Encounter for full-term uncomplicated delivery Status: Acute (3) History of drug use: Code(s): F19.91 - Other psychoactive substance use, unspecified, in remission Status: Acute Plan sign btl papers today Time Spent With Patient Time: Total time spent is greater than 50% in coordination of care (as documented) at patient's floor/unit and/or counseling patient: Review of Systems 2 Review of Systems: All systems as dictated in HPI Exam 2 Const: General: no acute distress and confusion Nutritional Appearance: a verage body habitus Limitations: altered mental status GI: Inspection: normal to inspection (Fundus firm below the umbilicus) : External Female Exam: normal external appearance Speculum Exam - Vagina: normal appearance of the vagina Speculum Exam - Cervix: normal appearance of the cervix (Placenta delivered with good uterine tone)
[2025-02-09 07:15] VITALS: BP 126/78; PULSE 78; RESP 16; TEMP 36.9; O2SAT 100
[2025-02-09] MEDS: DOCUSATE SODIUM 100 MG CAPSULE PO (07:15)
--- NOTE | 2025-02-09 10:36 | PC.NURSE ---
0800 Patient signed paperwork for [facility] regarding consent to sterilization to be done at a later date, she had discussed this with Dr. Karlee Chapman. Copy given to patient, another copy and the original placed on patient's chart for medical records. 1030 Discussed with patient any needs for Social Determinants of Health, patient requested information on housing and transportation. Handouts printed and given on each. Kinza with Care Coordination to bring her an outfit to wear home, as she had arrived to the hospital without a change of clothes. Per patient she will be calling a friend or family member for a ride home today.
== END 2025-02-09 14:55 | disposition home or self-care (01) | DRG 561 ==
LOC: ANHLDR 04:28 → ANHOB2 13:34
PROVIDERS: Admitting Provider Obstetrics & Gynecology; Visit Provider Obstetrics & Gynecology
DX: O99.325 Drug use complicating the puerperium (principal); F17.210 Nicotine dependence, cigarettes, uncomplicated; F15.90 Other stimulant use, unspecified, uncomplicated; F12.90 Cannabis use, unspecified, uncomplicated; O99.335 Smoking (tobacco) complicating the puerperium
CPT/HCPCS: 36415; 80307; 85014; 85018; 85025; 86593; 86703; 86762; 86803; 86850; 86900; 86901; 87340; 88307; A9270; G0432; J2590; J7120